=== PATIENT | female | born 1945 | race Caucasian/White ===

== ENCOUNTER 2016-04-28 20:59 | Emergency (ER) | payer OTHER ==
[~2016-04-28] VITALS: Ht 154.9 cm; Wt 65.0 kg
[~2016-04-28 20:59] MED LIST: CARB0.5D16 EACH EYE; CELE20TA PO; CEPH500C3 PO; DOXY100T17 PO; FIBE625T24 PO; GLUCTAB PO; IRON325T PO; LISI-357 PO; LORA0.5T PO; NORC7.5T PO; PROM25SU8 PR; ROPI.25 PO; TYLENOL ARTHRITIS; XARE10TA PO
[2016-04-28 21:01] VITALS: BP 135/73; PULSE 86; RESP 20; TEMP 97.8; O2SAT 99
--- NOTE | 2016-04-28 21:08 | PD ---
HPI Chief Complaint: Fall Time Seen by Provider: 21:02 Travel History International Travel<30 days: No Contact w/Intl Traveler<30days: No Traveled to known affect area: No History of Present Illness HPI This is a 70-year-old female with history of type 2 diabetes, and presents here with EMS after she apparently fell. The patient was reportedly drinking wine and had more than she should have. The medics state that she was witnessed falling forward and striking her head. The patient is amnestic to the event. She denies any pain in her head or neck however does appear to be slightly somnolent. The patient denies any back pain or abdominal pain. There are no other complaints at this time my examination however the patient is a poor historian. PFSH Past Medical History Arthritis: Yes (DGERATIVE DISC DISEASE) Cancer: No Cardiovascular Problems: No Diabetes: Yes (TYPE 2) Endocrine: Yes Fibromyalgia: Yes Genitourinary: Yes (INTERSTIAL CYSTITIS) Hepatitis: No Hiatal Hernia: No Hypertension: Yes Immune Disorder: No Musculoskeletal: Yes (ARTHRITIS, HX DDD) Neurologic: No Psychiatric: Yes (DEPRESSION) Reproductive: No Respiratory: No Thyroid Disease: No Past Surgical History Abdominal Surgery: Yes (APPY, CHOLY) AICD: No Cardiac Surgery: No Ear Surgery: No Endocrine Surgery: No Eye Surgery: Yes (ZARINA CATARACTS) Genitourinary Surgery: Yes (BLADDER WASHING) Gynecologic Surgery: Yes (D&C) Joint Replacement: No Oral Surgery: Yes (TONSILLECTOMY,REMOVAL LT JAW JOINT WITH IMPLANT, REMOVAL IMPLANT) Pacemaker: No Thoracic Surgery: No Other Surgery: Yes Social History Alcohol Use: No Tobacco Use: No Substance Use: No Allergies-Medications (Allergen,Severity, Reaction): Coded Allergies: Erythromycin (Verified Allergy, Severe, Nausea/Vomiting, 04/28/16) Morphine (Verified Allergy, Severe, Nausea/Vomiting, 04/28/16) Penicillin (Verified Allergy, Severe, Hives, 04/28/16) Phenobarbital (Verified Allergy, Severe, Hives, 04/28/16) Reported Meds & Prescriptions Reported Meds & Active Scripts Active Reported Pravastatin 10 Mg Tab 10 Mg PO HS Omeprazole 40 Mg Cap 40 Mg PO DAILY Mobic (Meloxicam) 7.5 Mg Tab 7.5 Mg PO DAILY Lorazepam 0.5 Mg Tab 0.5 Mg PO BID PRN Hydroxyzine HCl 50 Mg Tab 50 Mg PO HS Metformin (Metformin HCl) 500 Mg Tab 500 Mg PO DAILY With a meal Lisinopril 5 Mg Tab 5 Mg PO DAILY Ferrous Sulfate 325 Mg Tab 325 Mg PO DAILY Celexa (Citalopram Hydrobromide) 20 Mg Tab 20 Mg PO DAILY Fiber (Calcium Polycarbophil) 625 Mg Tab 1,250 Mg PO PRN Artificial Tears Opth Drops (Polyvinyl Alcohol-Povidone Opth Drops) 0.5-0.6% Soln 1-2 Drop EACH EYE PRN PRN Review of Systems ROS Limitations: Clinical Condition Except as stated in HPI: all other systems reviewed are Neg Eyes: No: Diploplia, Blurred Vision HENT: No: Headaches (denies), Neck Stiffness (denies) Cardiovascular: No: Chest Pain or Discomfort Respiratory: No: Cough, Shortness of Breath Gastrointestinal: Positive: Nausea (en route), Vomiting (en route), No: Abdominal Pain Genitourinary: No: Incontinence Musculoskeletal: No: Arthralgias, Pain (denies) Neurologic: Positive: Other, No: Headache, Incontinence, Seizures Physical Exam Narrative GENERAL: Well-developed well-nourished female in no acute rest her distress. SKIN: Warm and dry. HEAD: Atraumatic. Normocephalic. EYES: No scleral icterus. No injection or drainage. ENT: No nasal bleeding or discharge. Mucous membranes pink and moist. NECK: Trachea midline. No pain in the posterior spinous process. CARDIOVASCULAR: Regular rate and rhythm. No murmur appreciated. RESPIRATORY: No accessory muscle use. Clear to auscultation. Breath sounds equal bilaterally. No Rales appreciated GASTROINTESTINAL: Abdomen soft, non-tender, nondistended. MUSCULOSKELETAL: No obvious deformities. No clubbing. No cyanosis. No edema. NEUROLOGICAL: Awake and somnolent. No obvious cranial nerve deficits. Motor grossly within normal limits. Slight slurring. Data Data Last Documented VS Vital Signs Date Time Temp Pulse Resp B/P Pulse Ox O2 Delivery O2 Flow Rate FiO2 04/28/16 21:01 97.8 86 20 135/[address] Cerv Spine W/O Contrast (04/28/16 21:02) Electrocardiogram (04/28/16 21:28) Complete Blood Count With Diff (04/28/16 21:28) Comprehensive Metabolic Panel (04/28/16 21:28) Creatine Kinase (Cpk) (04/28/16 21:28) Troponin I (04/28/16 21:28) Urinalysis - C+S If Indicated (04/28/16 21:28) Ct Brain W/O Iv Contrast(Rout) (04/28/16 21:28) Blood Glucose (04/28/16 21:28) Ecg Monitoring (04/28/16 21:28) Iv Access Insert/Monitor (04/28/16 21:28) Oximetry (04/28/16 21:28) Sodium Chloride 0.9% Flush (Ns Flush) (04/28/16 21:30) Alcohol (Ethanol) (04/28/16 21:28) Labs Laboratory Tests Test 04/28/16 21:40 White Blood Count 8.1 TH/MM3 Red Blood Count 4.50 MIL/MM3 Hemoglobin 13.3 GM/DL Hematocrit 41.0 % Mean Corpuscular Volume 91.1 FL Mean Corpuscular Hemoglobin 29.6 PG Mean Corpuscular Hemoglobin 32.5 % Concent Red Cell Distribution Width 13.6 % Platelet Count 266 TH/MM3 Mean Platelet Volume 8.3 FL Neutrophils (%) (Auto) 60.4 % Lymphocytes (%) (Auto) 31.3 % Monocytes (%) (Auto) 5.5 % Eosinophils (%) (Auto) 2.0 % Basophils (%) (Auto) 0.8 % Neutrophils # (Auto) 4.9 TH/MM3 Lymphocytes # (Auto) 2.5 TH/MM3 Monocytes # (Auto) 0.4 TH/MM3 Eosinophils # (Auto) 0.2 TH/MM3 Basophils # (Auto) 0.1 TH/MM3 CBC Comment DIFF FINAL Differential Comment Sodium Level 143 MEQ/L Potassium Level 3.7 MEQ/L Chloride Level 109 MEQ/L Carbon Dioxide Level 21.1 MEQ/L Anion Gap 13 MEQ/L Blood Urea Nitrogen 14 MG/DL Creatinine 0.67 MG/DL Estimat Glomerular Filtration 87 ML/MIN Rate Random Glucose 126 MG/DL Calcium Level 8.2 MG/DL Total Bilirubin 0.2 MG/DL Aspartate Amino Transf 18 U/L (AST/SGOT) Alanine Aminotransferase 34 U/L (ALT/SGPT) Alkaline Phosphatase 68 U/L Total Creatine Kinase 83 U/L Troponin I LESS THAN 0.02 NG/ML Total Protein 6.6 GM/DL Albumin 3.7 GM/DL Ethyl Alcohol Level 164 MG/DL MDM Medical Decision Making Medical Screen Exam Complete: Yes Emergency Medical Condition: Yes Differential Diagnosis Closed head injury versus cervical spine injury versus intoxication versus electrolyte abnormality Narrative Course 70-year-old female who presents via EMS after she was drinking with friends tonight and had a mechanical fall. The patient does not recall the activity. Head CT and cervical spine CT are negative for acute process. Blood work is within normal limits except for a serum alcohol level of 164. On reexamination at 1125, the patient is awake appropriate and laughing with her friends. I did warn that she needs to be careful with ingesting alcohol as this could have been a lot worse. She was understanding and stated that she did not believe she had an ingestion that much alcohol. She is instructed to increase her fluid intake which should include water. She also been told she can use Tylenol as needed if she develops a headache. Diagnosis Primary Impression: Alcohol intoxication Additional Impression: mechanical fall without injury Additional Instructions: Drink plenty of water. Avoid heavy alcohol use. Disposition: 01 DISCHARGE HOME Condition: Stable Omer Moncada MD Apr 28, 2016 21:08
[2016-04-28] MEDS ORDERED: FERR325T PO (21:11)
[2016-04-28] MEDS ORDERED: LISI-519 PO (21:11)
[2016-04-28] MEDS ORDERED: CELE20TA PO (21:11)
[2016-04-28] MEDS ORDERED: POLYSOL14 EACH EYE (21:11)
[2016-04-28] MEDS ORDERED: METF500T PO (21:11)
[2016-04-28] MEDS ORDERED: FIBE625T10 PO (21:11)
[2016-04-28] MEDS ORDERED: HYDR50TA94 PO (21:23)
[2016-04-28] MEDS ORDERED: LORA-373 PO (21:23)
[2016-04-28] MEDS ORDERED: OMEP40CA2 PO (21:23)
[2016-04-28] MEDS ORDERED: MOBI7.5T PO (21:23)
[2016-04-28] MEDS ORDERED: PRAV10TA PO (21:23)
[2016-04-28] MEDS ORDERED: SODIUM CHLORIDE 0.9% FLUSH 5 ML FLUSH IVF PRN (21:30)
[2016-04-28 22:04] LABS: AUTOMATED NEUTROPHIL # 4.9 TH/MM3 (1.8-7.7); BASOPHIL # 0.1 TH/MM3 (0-0.2); BASOPHIL % 0.8 % (0.0-2.0); EOSINOPHIL # 0.2 TH/MM3 (0-0.4); HEMO FLAGS DIFF FINAL; LYMPH % 31.3 % (9.0-44.0); LYMPHOCYTE # 2.5 TH/MM3 (1.0-4.8); MEAN CELL VOLUME 91.1 FL (80.0-100.0); MEAN CORPUSCULAR HEMOGLOBIN 29.6 PG (27.0-34.0); MEAN CORPUSCULAR HGB CONC 32.5 % (32.0-36.0); MONO % 5.5 % (0.0-8.0); NEUT % 60.4 % (16.0-70.0); PLATELET COUNT 266 TH/MM3 (150-450); RED CELL DISTRIBUTION WIDTH 13.6 % (11.6-17.2); WHITE BLOOD COUNT 8.1 TH/MM3 (4.0-11.0)
[2016-04-28 22:20] LABS: ANION GAP 13 MEQ/L (5-15); AST (GOT) 18 U/L (15-37); BICARBONATE 21.1 MEQ/L (21.0-32.0); BLOOD UREA NITROGEN 14 MG/DL (7-18); CHLORIDE 109 MEQ/L (98-107); GLOMERULAR FILTRATION RATE 87 ML/MIN (>89); POTASSIUM 3.7 MEQ/L (3.5-5.1); SODIUM (NA) 143 MEQ/L (136-145)
[2016-04-28 22:23] LABS: ALKALINE PHOSPHATASE 68 U/L (45-117); ALT (GPT) 34 U/L (10-53); TOTAL BILIRUBIN ADULT 0.2 MG/DL (0.2-1.0)
[2016-04-28 22:26] LABS: CREATINE KINASE 83 U/L (26-192)
--- NOTE | 2016-04-28 22:48 | RADRPT ---
EXAM DATE/TIME: 04/28/2016 22:38 [facility] COMPARISON: No previous studies available for comparison. INDICATIONS : Trauma; fall. ETOH. RADIATION DOSE: 28.42 CTDIvol (mGy) MEDICAL HISTORY : Hypertension. Diabetes mellitus type 2. SURGICAL HISTORY : Appendectomy. Cholecystectomy. ENCOUNTER: Initial ACUITY: 1 day PAIN SCALE: 5/10 LOCATION: cranial TECHNIQUE: Multiple contiguous axial images were obtained of the head. Using automated exposure control and adj ustment of the mA and/or kV according to patient size, radiation dose was kept as low as reasonably a chievable to obtain optimal diagnostic quality images. FINDINGS: There is mild atrophy greatest in the bilateral frontal regions. No hemorrhage, infarct, or mass. No fractures. CONCLUSION: Atrophy. Freddie Amador MD on April 28, 2016 at 22:46 Board Certified Radiologist. This report was verified electronically.
--- NOTE | 2016-04-28 22:54 | RADRPT ---
EXAM DATE/TIME: 04/28/2016 22:38 [facility] COMPARISON: CT BRAIN W/O CONTRAST, April 28, 2016, 22:38. INDICATIONS : Trauma; fall. ETOH. RADIATION DOSE: 19.77 CTDIvol (mGy) MEDICAL HISTORY : Hypertension. Diabetes mellitus type 2. SURGICAL HISTORY : Appendectomy. Cholecystectomy. ENCOUNTER: Initial ACUITY: 1 day PAIN SCALE: 5/10 LOCATION: neck TECHNIQUE: Volumetric scanning of the cervical spine was performed. Multiplanar reconstructions in the sagittal, coronal and oblique axial planes were performed. Using automated exposure control and adjustment o f the mA and/or kV according to patient size, radiation dose was kept as low as reasonably achievable to obtain optimal diagnostic quality images. FINDINGS: There is multilevel uncovertebral hypertrophy. No compression deformities are seen. No prevertebral s oft tissue swelling. The odontoid process is intact. There is previous intervertebral fusion at C6-7. Level osteophytosis is noted. Mild multilevel facet hypertrophic changes are present. There is sever e disc space narrowing throughout the cervical spine. Moderate right foraminal stenosis at C3-4 secon lenin to facet and uncovertebral hypertrophy. CONCLUSION: No fracture or listhesis. Freddie Amador MD on April 28, 2016 at 22:50 Board Certified Radiologist. This report was verified electronically.
--- NOTE | 2016-04-29 10:10 | EKG ---
Date Performed: 04/28/2016 Time Performed: 23:18:03 PTAGE: 70 years EKG: Sinus rhythm NORMAL ECG NO PREVIOUS TRACING DOCTOR: Jeremy Gunter Interpretating Date/Time 04/29/2016 10:04:33
== END 2016-04-28 23:37 | disposition home or self-care (01) ==
LOC: NEPE 20:59
DX: F10.129 Alcohol abuse with intoxication, unspecified (principal); R11.2 Nausea with vomiting, unspecified; E11.9 Type 2 diabetes mellitus without complications; M79.7 Fibromyalgia; I10 Essential (primary) hypertension; W19.XXXA Unspecified fall, initial encounter; Y99.8 Other external cause status
CPT/HCPCS: 70450; 72125; 80053; 80320; 82550; 84484; 85025; 93005